=== PATIENT | male | born 1955 | race Caucasian/White ===

== ENCOUNTER → 2017-08-05 | Outpatient (CLI) | payer OTHER ==
--- NOTE | 2017-08-05 19:27 | US ---
EXAM DESCRIPTION: Gall Bladder: ULTRASOUND. CLINICAL HISTORY: POLYP OF GALLBLADDER COMPARISON: None. TECHNIQUE: Transabdominal scannin-dimensional and Doppler modes. FINDINGS: The gallbladder demonstrates an echogenic object on the wall of the fundus. Mobile with patient change in position. [place] dependent. Diameter is 4.8 mm with no acoustic shadowing. No definite material noted in the neck of the gallbladder with acoustic shadowing and appears mobile with patient change in position. No fluid around the gallbladder. No wall thickening. 1.9 mm. Common bile duct caliber is 5.5 mm which is within normal limits. . No stones in the visualized portion of the duct. Not tender with transducer pressure. The liver demonstrates normal echogenicity; contour of the liver capsule is smooth where seen. No fluid around the liver. Intrahepatic biliary ducts are non-dilated. Craniocaudal dimension in the mid-clavicular axis is 16.9 cm. Pancreas head, body, tail not well seen due to intestinal gas duct was not seen. Normal Doppler vascularity in the gurinder hepatis. IMPRESSION: 1. Small gallstones or gravel in the gallbladder neck which may have the patient change in position. No wall thickening or pericholecystic fluid. Polyp near the fundus of the gallbladder. 2. Normal ultrasound of the liver. Normal ultrasound of the intrahepatic and extra hepatic biliary ducts. No ascites. Normal vascularity. Pancreas was not well seen. Electronically signed by: Vance Acevedo MD 08/05/2017 7:25 PM [employer]
== END | disposition home or self-care (01) ==
LOC: US 08:43
PROVIDERS: ATTEND Family Medicine
DX: K82.8 Other specified diseases of gallbladder (principal)

== ENCOUNTER → 2018-01-10 | Outpatient (CLI) | payer OTHER | LOC: GMAM 11:02 | PROVIDERS: ATTEND Family Medicine | DX: Z12.5 Encounter for screening for malignant neoplasm of prostate (principal) ==

== ENCOUNTER → 2018-02-13 | Outpatient (CLI) | payer OTHER | LOC: GMAM 17:08 | PROVIDERS: ATTEND Family Medicine | DX: R86.9 Unspecified abnormal finding in specimens from male genital organs (principal) ==

== ENCOUNTER → 2019-03-25 | Outpatient (CLI) | payer OTHER ==
--- NOTE | 2019-03-25 10:48 | CT ---
PROCEDURE: CT LUNG CANCER SCREENING CLINICAL HISTORY: Screening visit , Lung cancer screening, COMPARISON: Chest radiograph 03/11/2019. TECHNIQUE: kVp: 120 mA: 45 DLP: 66 FINDINGS: Exam parameters: Low dose lung CT. Diagnostic quality: Satisfactory Lung nodules: Right lower lobe 3 mm noncalcified nodule (axial image 60) likely representing a perifissural lymph node. Left lower lobe 2 mm noncalcified nodule (axial image 65). Lungs: COPD: Mild Fibrosis: None Lymph nodes: Nonenlarged. No focal consolidation, pneumothorax or pleural effusion. Heart: Small anterior pericardial effusion. Heart size: Within normal limits Coronary calcification: Mild Other findings: Upper abdomen: Cholelithiasis.. IMPRESSION: Right lower lobe 3 mm perifissural lymph node and left lower lobe 2 mm noncalcified pulmonary nodule. LUNG RADS: Category 1 - No nodule or definitely benign nodules (probability of malignancy less than 1%). Follow-up: Continue annual screening with Low Dose Chest CT in 12 months. This exam was performed according to our departmental dose-optimization program, which includes automated exposure control, adjustment of the mA and/or kV according to patient size and/or use of iterative reconstruction technique. Electronically signed by: Rodney Brar DO 03/25/2019 10:46 AM CDT
== END ==
LOC: CT 10:00
PROVIDERS: ATTEND Family Medicine
DX: Z87.891 Personal history of nicotine dependence (principal); R91.1 Solitary pulmonary nodule; R91.8 Other nonspecific abnormal finding of lung field

== ENCOUNTER → 2019-05-08 | Outpatient (CLI) | payer OTHER ==
--- NOTE | 2019-05-08 16:42 | US ---
Exam: Bilateral lower extremity arterial Doppler sonogram CLINICAL HISTORY: Symptoms TECHNIQUE: Doppler sonographic evaluation of the bilateral lower extremities was performed. FINDINGS: Right Submitted sonographic images reveal calcified plaque in the right lower extremity arteries. The following peak systolic flow flow velocity measurements were obtained: Common femoral artery velocity equals 87 centimeters per second , triphasic. Superficial femoral artery velocity equals 58-88 centimeters per second , triphasic. Popliteal artery velocity equals 51 centimeters per second , triphasic. Peroneal artery velocity equals 25 centimeters per second , biphasic. Posterior tibial artery velocity equals 95 centimeters per second , triphasic. Dorsalis pedis artery velocity equals 23 centimeters per second , triphasic. Left Submitted sonographic images reveal arteriosclerotic plaque in the left lower extremity arteries. The following peak systolic flow flow velocity measurements were obtained: Common femoral artery velocity equals 97 centimeters per second , triphasic. Superficial femoral artery velocity equals 54-94 centimeters per second , triphasic. Popliteal artery velocity equals 43 centimeters per second , triphasic. Peroneal artery velocity equals 73 centimeters per second , triphasic. Posterior tibial artery velocity equals 46 centimeters per second , triphasic. Dorsalis pedis artery velocity equals 37 centimeters per second , triphasic. IMPRESSION: Normal multiphasic flow in the lower extremity arteries with no significant stenosis. Electronically signed by: Alek Vega MD 05/08/2019 4:40 PM CDT
== END ==
LOC: US 12:52
PROVIDERS: ATTEND Family Medicine
DX: I73.9 Peripheral vascular disease, unspecified (principal)

== ENCOUNTER → 2019-08-05 | Outpatient (CLI) | payer OTHER | LOC: GMALS 16:47 | PROVIDERS: ATTEND Nurse Practitioner Acute Care | DX: Z12.5 Encounter for screening for malignant neoplasm of prostate (principal) ==

== ENCOUNTER → 2020-02-10 | Outpatient (CLI) | payer MEDICARE, OTHER | LOC: GMAM 10:40 | PROVIDERS: ATTEND Family Medicine | DX: Z12.5 Encounter for screening for malignant neoplasm of prostate (principal); R53.82 Chronic fatigue, unspecified; E78.2 Mixed hyperlipidemia; I10 Essential (primary) hypertension | CPT/HCPCS: 84439; 84443; G0103 ==

== ENCOUNTER → 2020-04-04 | Outpatient (CLI) | payer MEDICARE, OTHER ==
--- NOTE | 2020-04-05 16:34 | CT ---
Procedure: CT LUNG SCREENING Exam Date: April 04, 2020. Ordering Provider: Jose Haque Clinical Indication: PERSON HX OF TOBACCO USE . Smoking cessation x 8 years. 105 pack years. This patient meets eligibility criteria for low-dose CT lung cancer screening. Comparison: Low-dose CT lung cancer screening examination March 2019. Technique: Using a multislice scanner, sequential helical axial imaging was obtained in the thorax, 2.5 mm thickness, 2.5 mm separation, from the level of the thoracic inlet through the lung bases without IV contrast. A low dose protocol was utilized for BMI greater than 30: BMI: 31. CTDI: 2.93 mGy. 120. kVp. 75 mA. DLP 111 mGy-cm. 2D sagittal and coronal reconstructed images, 6.0 mm thickness, were obtained. This exam was performed according to our departmental dose optimization program which includes use of automated exposure control, adjustment of the mA and/or kV according to patient size and/or use of iterative reconstruction technique. Nodule measurements under 10 mm are given as mean value of 3 axes diameters. FINDINGS: Lungs and large airways: Minimally dilated airspaces in the upper lung reina but no definite blebs. Minimal septal thickening. Pleural parenchymal scarring lateral superior segment right lower lobe, inferior lingula, bilateral lower lobe bases minimal perihilar peribronchial wall cuffing bilaterally. No abnormal nodules and no masses. No focal/new infiltrates. Pleura and space: Sporadic thickening stable. Mediastinum and jeaneth: evaluation limited by low dose technique and lack of IV contrast. Small nodes but no dominant soft tissue mass stable. Heart and great vessels: Coronary artery calcifications unchanged. Anterior pericardial thickening stable. Atherosclerotic calcifications of aorta and several brachiocephalic vessels unchanged. Chest wall, lower neck, axillae: Evaluation also limited by same factors as described above. Normal size axillary nodes. Upper abdomen: Evaluation limited by low-dose technique. No free air or free fluid. Atherosclerotic calcifications. Gallstones stable. Osseous structures: Evaluation limited by low dose MIP technique. Spondylosis thoracic spine and dextroscoliosis. 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 IMPRESSION: 1. Mild emphysematous changes. Minimal scarring. No abnormal nodules and no masses. No focal/no infiltrates. Stable since the prior study.. [facility] Best Practice Recommendations: please see below for Lung RADS category and FOLLOW-UP.* *Lung RADS category Category 1S - No nodule or definitely benign nodules (probability of malignancy less than 1%). Follow-up: Continue annual screening with Low Dose Chest CT in 12 months. 2. Lung RADS Modifier S - Clinically Significant or Potentially Clinically Significant Findings (non lung cancer). a. Cholelithiasis of the gallbladder also seen on the prior study. Correlate for clinical findings. b. Thickening of the anterior pericardium also seen on the prior study. Electronically signed by: Vance Acevedo MD 04/05/2020 4:32 PM CDT
== END ==
LOC: CT 13:30
PROVIDERS: ATTEND Family Medicine
DX: Z87.891 Personal history of nicotine dependence (principal); J43.9 Emphysema, unspecified; J98.4 Other disorders of lung